=== PATIENT | female | born 1960 | race Caucasian/White ===

== ENCOUNTER 2016-10-23 08:15 | Inpatient (IN) | payer OTHER ==
[2016-10-23] VITALS (7 sets, daily range): BP systolic 131–168; BP diastolic 60–79; PULSE 79–92; RESP 18–22; TEMP 97.9–98.8; O2SAT 88–94
[~2016-10-23] VITALS: Ht 162.6 cm; Wt 89.0 kg
[2016-10-23] MEDS ORDERED: SODIUM CHLORIDE 0.9% FLUSH 10 ML FLUSH IVF PRN (08:30)
[2016-10-23] MEDS ORDERED: methylPREDNISolone SOD SUCC 125 MG/2 ML VIAL IVP ONE (08:30)
[2016-10-23] MEDS ORDERED: LISI10TA3 PO (08:31)
[2016-10-23] MEDS ORDERED: ASPI81CH CHEW (08:31)
--- NOTE | 2016-10-23 08:35 | PD ---
HPI Chief Complaint: Respiratory Distress Time Seen by Provider: 08:26 Travel History International Travel<30 days: No Contact w/Intl Traveler<30days: No Traveled to known affect area: No History of Present Illness HPI 56yo F with PMH of HTN and COPD presents to the ED with c/o sob since yesterday. Associated with midsternal chest tightness that is constant but waxes and wanes in intensity. Nonradiating. +Productive cough. Denies any fever, n/v, abdominal pain, focal weakness or numbness. Pt states she used her pumps but didnt help. PFSH Social History Tobacco Use: No Allergies-Medications (Allergen,Severity, Reaction): Coded Allergies: Morphine (Verified Allergy, Severe, 10/23/16) Reported Meds & Prescriptions Reported Meds & Active Scripts Active Reported Aspirin 81 Mg Chew 81 Mg CHEW DAILY Lisinopril 10 Mg Tab 10 Mg PO DAILY Review of Systems Except as stated in HPI: all other systems reviewed are Neg Physical Exam Narrative GENERAL: 56yo F in moderate distress. SKIN: Focused skin assessment warm/dry. HEAD: Atraumatic. Normocephalic. EYES: Pupils equal and round. No scleral icterus. No injection or drainage. ENT: No nasal bleeding or discharge. Mucous membranes pink and moist. NECK: Trachea midline. No JVD. CARDIOVASCULAR: Regular rate and rhythm. No murmur appreciated. RESPIRATORY: Expiratory wheezing bilaterally in upper and lower lungs. O2 sat 87% on RA. 95% on 2L NC. GASTROINTESTINAL: Abdomen soft, non-tender, nondistended. MUSCULOSKELETAL: No obvious deformities. No clubbing. No cyanosis. No edema. NEUROLOGICAL: Awake and alert. No obvious cranial nerve deficits. Motor grossly within normal limits. Normal speech. PSYCHIATRIC: Appropriate mood and affect; insight and judgment normal. Data Data Last Documented VS Vital Signs Date Time Temp Pulse Resp B/P Pulse Ox O2 Delivery O2 Flow Rate FiO2 10/23/16 08:36 94 Nasal Cannula 2 10/23/16 08:27 20 10/23/16 08:17 98.8 91 155/70 Orders Complete Blood Count With Diff (10/23/16 08:30) Basic Metabolic Panel (Bmp) (10/23/16 08:30) B-Type Natriuretic Peptide (10/23/16 08:30) Act Partial Throm Time (Ptt) (10/23/16 08:30) Prothrombin Time / Inr (Pt) (10/23/16 08:30) Ckmb (Isoenzyme) Profile (10/23/16 08:30) Troponin I (10/23/16 08:30) Arterial Blood Gas (Abg) (10/23/16 08:30) Influenzae A/B Antigen (10/23/16 08:30) Blood Culture (10/23/16 08:30) Iv Access Insert/Monitor (10/23/16 08:30) Electrocardiogram (10/23/16 08:30) Ecg Monitoring (10/23/16 08:30) Oximetry (10/23/16 08:30) Oxygen Administration (10/23/16 08:30) Chest, Single Ap (10/23/16 08:30) Sodium Chloride 0.9% Flush (Ns Flush) (10/23/16 08:30) Methylprednisolone So Succ Inj (Solumedr (10/23/16 08:30) Albuterol-Ipratropium Neb (Duoneb Neb) (10/23/16 08:30) Lactic Acid Sepsis Protocol (10/23/16 08:35) CKMB (10/23/16 08:35) CKMB% (10/23/16 08:35) Albuterol Neb (Albuterol Neb) (10/23/16 12:00) Admit Order (Ed Use Only) (10/23/16 11:07) Labs Laboratory Tests Test 10/23/16 10/23/16 10/23/16 08:35 08:40 08:48 White Blood Count 6.5 TH/MM3 Red Blood Count 5.43 MIL/MM3 Hemoglobin 17.1 GM/DL Hematocrit 49.4 % Mean Corpuscular Volume 91.0 FL Mean Corpuscular Hemoglobin 31.5 PG Mean Corpuscular Hemoglobin 34.6 % Concent Red Cell Distribution Width 14.1 % Platelet Count 205 TH/MM3 Mean Platelet Volume 9.8 FL Neutrophils (%) (Auto) 50.1 % Lymphocytes (%) (Auto) 30.3 % Monocytes (%) (Auto) 16.6 % Eosinophils (%) (Auto) 2.2 % Basophils (%) (Auto) 0.8 % Neutrophils # (Auto) 3.2 TH/MM3 Lymphocytes # (Auto) 2.0 TH/MM3 Monocytes # (Auto) 1.1 TH/MM3 Eosinophils # (Auto) 0.1 TH/MM3 Basophils # (Auto) 0.1 TH/MM3 CBC Comment DIFF FINAL Differential Comment Prothrombin Time 11.0 SEC Prothromb Time International 1.0 RATIO Ratio Activated Partial 29.4 SEC Thromboplast Time Sodium Level 139 MEQ/L Potassium Level 3.9 MEQ/L Chloride Level 104 MEQ/L Carbon Dioxide Level 26.5 MEQ/L Anion Gap 9 MEQ/L Blood Urea Nitrogen 16 MG/DL Creatinine 1.12 MG/DL Estimat Glomerular Filtration 50 ML/MIN Rate Random Glucose 101 MG/DL Calcium Level 8.9 MG/DL Total Creatine Kinase 197 U/L Creatine Kinase MB 1.2 NG/ML Creatine Kinase MB % 0.6 % Troponin I LESS THAN 0.02 NG/ML B-Type Natriuretic Peptide 38 PG/ML Lactic Acid Level 0.8 mmol/L Blood Gas Puncture Site RT RADIAL Blood Gas Patient Temperature 98.6 Blood Gas HCO3 24 mmol/L Blood Gas Base Excess 0.6 mmol/L Blood Gas Oxygen Saturation 86 % Arterial Blood pH 7.44 Arterial Blood Partial 36 mmHg Pressure CO2 Arterial Blood Partial 55 mmHG Pressure O2 Arterial Blood Oxygen Content 20.3 Vol % Arterial Blood 4.4 % Carboxyhemoglobin Arterial Blood Methemoglobin 0.6 % Blood Gas Hemoglobin 16.8 G/DL Oxygen Delivery Device ROOM AIR Blood Gas Inspired Oxygen 21 % [facility] Medical Decision Making Medical Screen Exam Complete: Yes Emergency Medical Condition: Yes Interpretation(s) EKG: NSR 84bpm. Normal axis. TWI aVL. No ST segment elevation or depression. Differential Diagnosis COPD exacerbation vs. Pneumonia vs. Bronchitis vs. ACS vs. CHF Narrative Course 56yo F with PMH of COPD presents to the ED with sob. Labs reviewed, no leukocytosis. H/H elevated. Troponin negative. BNP 38. Lactic acid 0.8. ABG showed O2 sat 86% on RA. CXR negative. Pt is wheezing bilaterally. Given methylprednisolone 125mg IV and duonebs x3 and feels a little better. Pt is still wheezing and saturating at 88% off oxygen. Pt does not have oxygen at home. Feel that pt will benefit from observation admission for COPD exacerbation. Diagnosis Primary Impression: COPD exacerbation Admitting Information Admitting Physician Requests: Observation Carole France DO Oct 23, 2016 08:34
[2016-10-23] MEDS: RESP: ALBUTEROL 2.5 MG/IPRATROPIUM 0.5 MG NEB (SCH) INH ×3 (08:41→08:45)
[2016-10-23 08:53] LABS: BLOOD GAS BASE EXCESS 0.6 mmol/L (-2-2); BLOOD GAS CARBOXYHEMOGLOBIN 4.4 % (0-4); BLOOD GAS HCO3 24 mmol/L (22-26); BLOOD GAS METHEMOGLOBIN 0.6 % (0-2); BLOOD GAS O2 HGB SATURATION 86 % (90-100); BLOOD GAS OXYGEN CONTENT 20.3 Vol % (12.0-20.0); BLOOD GAS PCO2 36 mmHg (38-42); BLOOD GAS PO2 55 mmHG (61-120); BLOOD GAS TOTAL HGB 16.8 G/DL (12.0-16.0); CRITICAL VALUE YES; FIO2 21 %; OXYGEN DEVICE ROOM AIR; TEMP CORR TO 98.6
[2016-10-23 08:54] LABS: DRAW SITE RT RADIAL; NUMBER OF ARTERIAL PUNCTURES 1; STAT YES; ULNAR PULSE Y
[2016-10-23 09:06] LABS: AUTOMATED NEUTROPHIL # 3.2 TH/MM3 (1.8-7.7); BASOPHIL # 0.1 TH/MM3 (0-0.2); BASOPHIL % 0.8 % (0.0-2.0); EOSINOPHIL # 0.1 TH/MM3 (0-0.4); EOSINOPHIL % 2.2 % (0.0-4.0); HEMATOCRIT 49.4 % (35.0-46.0); HEMO FLAGS DIFF FINAL; LYMPH % 30.3 % (9.0-44.0); MEAN CORPUSCULAR HEMOGLOBIN 31.5 PG (27.0-34.0); MEAN CORPUSCULAR HGB CONC 34.6 % (32.0-36.0); MONO % 16.6 % (0.0-8.0); NEUT % 50.1 % (16.0-70.0); PLATELET COUNT 205 TH/MM3 (150-450); RED BLOOD COUNT 5.43 MIL/MM3 (4.00-5.30); RED CELL DISTRIBUTION WIDTH 14.1 % (11.6-17.2); WHITE BLOOD COUNT 6.5 TH/MM3 (4.0-11.0)
[2016-10-23 09:12] LABS: APTT (PATIENT) 29.4 SEC (24.3-30.1)
[2016-10-23 09:16] LABS: ANION GAP 9 MEQ/L (5-15); BICARBONATE 26.5 MEQ/L (21.0-32.0); BLOOD UREA NITROGEN 16 MG/DL (7-18); CHLORIDE 104 MEQ/L (98-107); GLOMERULAR FILTRATION RATE 50 ML/MIN (>89); POTASSIUM 3.9 MEQ/L (3.5-5.1); SODIUM (NA) 139 MEQ/L (136-145)
[2016-10-23 09:20] LABS: CREATINE KINASE 197 U/L (26-192)
[2016-10-23 09:32] LABS: CKMB 1.2 NG/ML (0.5-3.6)
--- NOTE | 2016-10-23 10:27 | RADRPT ---
EXAM DATE/TIME: 10/23/2016 08:58 [place] COMPARISON: No previous studies available for comparison. INDICATIONS : Shortness of breath. MEDICAL HISTORY : Hypertension. Smoker. SURGICAL HISTORY : None. ENCOUNTER: Initial ACUITY: 2 days PAIN SCORE: 2/10 LOCATION: Bilateral chest FINDINGS: A single view of the chest demonstrates the lungs to be symmetrically aerated without evidence of mas s, infiltrate or effusion. The cardiomediastinal contours are unremarkable. Osseous structures are intact. CONCLUSION: 1. No acute cardiopulmonary findings. Nando Gustafson MD on October 23, 2016 at 10:25 Board Certified Radiologist. This report was verified electronically.
[2016-10-23] MEDS: RESP: ALBUTEROL 2.5 MG/IPRATROPIUM 0.5 MG NEB (SCH) NEB ×4 (11:53→22:20)
[2016-10-23] MEDS ORDERED: RESP: ALBUTEROL 2.5 MG/3 ML NEB (SCH) NEB (12:00)
--- NOTE | 2016-10-23 13:04 | HHI.HP ---
HPI Service CP Hospitalists Primary Care Physician No Primary Care Physician Admission Diagnosis COPD exacerbation Chief Complaint: SOB, cough Travel History International Travel<30 Days: No Contact w/Intl Traveler <30 Da: No Traveled to Known Affected Are: No History of Present Illness Mrs. Manzo is a 56 y/o female with COPD, HTN, and tobacco abuse. She presented to the ED at [facility] on 10/23/16 with complaints of SOB and was found to be hypoxic with O2 saturations of 88%on room air. Pt reported that in July 2016 and was seen at [facility] and she was diagnosed with bronchitis and was treated with Abx, cough medication, steroids and inhalers. She had been doing well up until 4 days ago when she began having scratchy throat and sneezing. She developed more chest tightness and feeling more SOB yesterday. She is now coughing up green phlegm over the last day or so, it had been clear initially. She denies any fevers or chills. Pt reports that she has been visiting her father in the hospital and also works at [employer]. She tried using her inhaler, cough drops, and took cough pills but did not have much relief. She states that she also used bleach in her bathroom 3 days ago but states that she does this every week without any issues previously. Review of Systems Constitutional: DENIES: Fever, Chills Eyes: DENIES: Vision loss Ears, nose, mouth, throat: COMPLAINS OF: Nasal discharge, Throat pain Respiratory: COMPLAINS OF: Cough, Wheezing, Shortness of breath Cardiovascular: DENIES: Chest pain, Palpitations Gastrointestinal: DENIES: Abdominal pain, Nausea, Vomiting Genitourinary: DENIES: Urinary frequency, Hematuria Musculoskeletal: DENIES: Joint pain, Back pain Integumentary: DENIES: Rash Hematologic/lymphatic: DENIES: Lymphadenopathy Neurologic: DENIES: Headache Psychiatric: DENIES: Confusion Past Family Social History Past Medical History HTN COPD, based on PFTs in 12/2015 Tobacco abuse 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, ?endocarditis which occurred after she had a cesarian section 21 years ago and developed a staph infection Past Surgical History Cesarian section x 3 Cholecystectomy Reported Medications Aspirin 81 Mg Chew 81 Mg CHEW DAILY Lisinopril 10 Mg Tab 10 Mg PO DAILY Allergies: Coded Allergies: Morphine (Verified Allergy, Severe, 10/23/16) Family History Mother with CAD Father alive and no specific medical problems Social History (+)Tobacco use, smoke 1/2 ppd for 43 years Denies any alcohol or illicit drug use Pt works at the [employer] Physical Exam Vital Signs Vital Signs Date Time Temp Pulse Resp B/P Pulse Ox O2 Delivery O2 Flow Rate FiO2 10/23/16 12:00 79 22 131/63 91 Nasal Cannula 2 10/23/16 08:36 94 Nasal Cannula 2 10/23/16 08:36 94 Nasal Cannula 2 10/23/16 08:27 20 94 Nasal Cannula 3 10/23/16 08:17 98.8 91 18 155/70 88 Physical Exam GENERAL: This is a well-nourished, well-developed patient, in no apparent distress. HEENT: Atraumatic. Normocephalic. No temporal or scalp tenderness. No scleral icterus. Airway patent. NECK: Trachea midline, supple, nontender. CARDIO: Regular RESP: Diffuse expiratory wheezes bilaterally. ABD: +BS, soft, non-tender, nondistended. EXT: Extremities without clubbing, cyanosis, or edema. NEURO: Awake and alert. Motor and sensory grossly within normal limits. Normal speech. Laboratory Laboratory Tests Test 10/23/16 10/23/16 10/23/16 08:35 08:40 08:48 White Blood Count 6.5 Red Blood Count 5.43 Hemoglobin 17.1 Hematocrit 49.4 Mean Corpuscular Volume 91.0 Mean Corpuscular Hemoglobin 31.5 Mean Corpuscular Hemoglobin 34.6 Concent Red Cell Distribution Width 14.1 Platelet Count 205 Mean Platelet Volume 9.8 Neutrophils (%) (Auto) 50.1 Lymphocytes (%) (Auto) 30.3 Monocytes (%) (Auto) 16.6 Eosinophils (%) (Auto) 2.2 Basophils (%) (Auto) 0.8 Neutrophils # (Auto) 3.2 Lymphocytes # (Auto) 2.0 Monocytes # (Auto) 1.1 Eosinophils # (Auto) 0.1 Basophils # (Auto) 0.1 CBC Comment DIFF FINAL Differential Comment Prothrombin Time 11.0 Prothromb Time International 1.0 Ratio Activated Partial 29.4 Thromboplast Time Sodium Level 139 Potassium Level 3.9 Chloride Level 104 Carbon Dioxide Level 26.5 Anion Gap 9 Blood Urea Nitrogen 16 Creatinine 1.12 Estimat Glomerular Filtration 50 Rate Random Glucose 101 Calcium Level 8.9 Total Creatine Kinase 197 Creatine Kinase MB 1.2 Creatine Kinase MB % 0.6 Troponin I LESS THAN 0.02 B-Type Natriuretic Peptide 38 Lactic Acid Level 0.8 Blood Gas Puncture Site RT RADIAL Blood Gas Patient Temperature 98.6 Blood Gas HCO3 24 Blood Gas Base Excess 0.6 Blood Gas Oxygen Saturation 86 Arterial Blood pH 7.44 Arterial Blood Partial 36 Pressure CO2 Arterial Blood Partial 55 Pressure O2 Arterial Blood Oxygen Content 20.3 Arterial Blood 4.4 Carboxyhemoglobin Arterial Blood Methemoglobin 0.6 Blood Gas Hemoglobin 16.8 Oxygen Delivery Device ROOM AIR Blood Gas Inspired Oxygen 21 Date/Time Procedure Status Source Growth 10/23/16 10:00 Influenza Types A,B Antigen (GIANCARLO) - Final Complete Nasal Aspirate NEGATIVE FOR FLU A AND B ANTIGEN.... 10/23/16 08:40 Aerobic Blood Culture Received Blood Peripheral Pending 10/23/16 08:40 Anaerobic Blood Culture Received Blood Peripheral Pending Result Diagram: 10/23/1635 10/23/1635 Imaging Last Impressions Chest X-Ray 10/23/16 0830 Signed Impressions: Service Date/Time: Sunday, October 23, 2016 08:58 - CONCLUSION: 1. No acute cardiopulmonary findings. Nando Gustafson MD Septic Shock Reassessment Heart: Regular rate and rhythm Lungs: Other Skin: Warm Assessment and Plan Problem List: (1) COPD exacerbation Status: Acute Plan: - Pt admitted with a COPD exacerbation which began 4 days ago - Pt was given Solemedrol 125mg x one dose in the ER - We will continued Solumedrol 60mg Q6H - Duonebs Q4H WA - Claritin - Mucinex - Blood cultures drawn in the ED - Pt tested negative for flu - Tobacco cessation - Pt will need to continue on Duonebs and Prednisone taper upon discharge and may need daily maintenance therapy for her COPD - DVT prophylaxis with SCDs (2) HTN (hypertension) Status: Chronic Plan: - Cont. home meds (3) Tobacco abuse Status: Chronic Plan: - Tobacco cessation - Pt states that she failed with Nicotine patches - Pt interested in Chantix. I will call [facility] to get pricing for her. Assessment and Plan Patient examined. Assessment and plan formulated with Anastasia Redd PA-C. I agree with the above. copd exacerbion solumedrol/nebs. o2. tob cessation. will call pharmacy in AM for outpt meds. Anastasia Redd Oct 23, 2016 13:04 Israel Henao MD Oct 24, 2016 00:29
[2016-10-23] MEDS ORDERED: LORATADINE 10 MG TAB PO ONE (14:30)
[2016-10-23] MEDS: methylPREDNISolone SOD SUCC 125 MG/2 ML VIAL IV PUSH SCH ×2 (14:42→19:44)
[2016-10-23] MEDS: guaiFENesin E.R. 600 MG TAB PO SCH ×2 (15:17→19:44)
--- NOTE | 2016-10-23 17:10 | EKG ---
Date Performed: 10/23/2016 Time Performed: 08:31:59 PTAGE: 56 years EKG: Sinus rhythm NORMAL ECG NO PREVIOUS TRACING DOCTOR: Radha Gonzalez Interpretating Date/Time 10/23/2016 17:08:54
[2016-10-24] VITALS (9 sets, daily range): BP systolic 126–154; BP diastolic 62–75; PULSE 72–93; RESP 18–20; TEMP 97.4–98.3; O2SAT 84–98
[2016-10-24] MEDS: methylPREDNISolone SOD SUCC 125 MG/2 ML VIAL IV PUSH SCH ×4 (01:26→20:59)
[2016-10-24 05:00] LABS: AUTOMATED NEUTROPHIL # 8.6 TH/MM3 (1.8-7.7); BASOPHIL % 0.2 % (0.0-2.0); HEMATOCRIT 48.6 % (35.0-46.0); HEMO FLAGS DIFF FINAL; LYMPH % 10.9 % (9.0-44.0); LYMPHOCYTE # 1.1 TH/MM3 (1.0-4.8); MEAN CELL VOLUME 91.3 FL (80.0-100.0); MEAN CORPUSCULAR HEMOGLOBIN 31.5 PG (27.0-34.0); MEAN CORPUSCULAR HGB CONC 34.5 % (32.0-36.0); NEUT % 82.9 % (16.0-70.0); PLATELET COUNT 209 TH/MM3 (150-450); RED BLOOD COUNT 5.32 MIL/MM3 (4.00-5.30); WHITE BLOOD COUNT 10.4 TH/MM3 (4.0-11.0)
[2016-10-24 05:28] LABS: BICARBONATE 22.7 MEQ/L (21.0-32.0); MAGNESIUM 2.2 MG/DL (1.5-2.5); POTASSIUM 4.1 MEQ/L (3.5-5.1)
[2016-10-24] MEDS: RESP: ALBUTEROL 2.5 MG/IPRATROPIUM 0.5 MG NEB (SCH) NEB ×4 (07:44→20:34)
--- NOTE | 2016-10-24 09:12 | HHI.PR ---
Subjective Remarks Pt overall is feeling better but still requiring supplemental O2 @ 2L Objective Vitals Vital Signs Date Time Temp Pulse Resp B/P Pulse Ox O2 Delivery O2 Flow Rate FiO2 10/24/16 07:59 97.4 81 20 126/65 93 10/24/16 07:45 Nasal Cannula 2.00 10/24/16 04:43 97.6 72 18 140/75 92 10/23/16 23:35 97.9 92 18 132/60 92 10/23/16 19:35 98.1 84 20 151/68 92 10/23/16 17:13 91 Nasal Cannula 2.00 10/23/16 15:06 97.9 79 20 168/79 91 10/23/16 12:00 79 22 131/63 91 Nasal Cannula 2 10/23/16 10/23/16 10/24/16 15:00 23:00 07:00 Intake Total 0 ml Balance 0 ml Intake IV Total 0 ml Result Diagram: 10/24/16 0435 10/24/16 0435 Other Results Laboratory Tests Test 10/23/16 10/23/16 10/23/16 10/24/16 08:35 08:40 08:48 04:35 White Blood Count 6.5 TH/MM3 10.4 TH/MM3 Red Blood Count 5.43 MIL/MM3 5.32 MIL/MM3 Hemoglobin 17.1 GM/DL 16.7 GM/DL Hematocrit 49.4 % 48.6 % Mean Corpuscular Volume 91.0 FL 91.3 FL Mean Corpuscular Hemoglobin 31.5 PG 31.5 PG Mean Corpuscular Hemoglobin 34.6 % 34.5 % Concent Red Cell Distribution Width 14.1 % 14.0 % Platelet Count 205 TH/MM3 209 TH/MM3 Mean Platelet Volume 9.8 FL 9.7 FL Neutrophils (%) (Auto) 50.1 % 82.9 % Lymphocytes (%) (Auto) 30.3 % 10.9 % Monocytes (%) (Auto) 16.6 % 6.0 % Eosinophils (%) (Auto) 2.2 % 0.0 % Basophils (%) (Auto) 0.8 % 0.2 % Neutrophils # (Auto) 3.2 TH/MM3 8.6 TH/MM3 Lymphocytes # (Auto) 2.0 TH/MM3 1.1 TH/MM3 Monocytes # (Auto) 1.1 TH/MM3 0.6 TH/MM3 Eosinophils # (Auto) 0.1 TH/MM3 0.0 TH/MM3 Basophils # (Auto) 0.1 TH/MM3 0.0 TH/MM3 CBC Comment DIFF FINAL DIFF FINAL Differential Comment Prothrombin Time 11.0 SEC Prothromb Time International 1.0 RATIO Ratio Activated Partial 29.4 SEC Thromboplast Time Sodium Level 139 MEQ/L 139 MEQ/L Potassium Level 3.9 MEQ/L 4.1 MEQ/L Chloride Level 104 MEQ/L 106 MEQ/L Carbon Dioxide Level 26.5 MEQ/L 22.7 MEQ/L Anion Gap 9 MEQ/L 10 MEQ/L Blood Urea Nitrogen 16 MG/DL 19 MG/DL Creatinine 1.12 MG/DL 0.97 MG/DL Estimat Glomerular Filtration 50 ML/MIN 59 ML/MIN Rate Random Glucose 101 MG/DL 160 MG/DL Calcium Level 8.9 MG/DL 9.3 MG/DL Total Creatine Kinase 197 U/L Creatine Kinase MB 1.2 NG/ML Creatine Kinase MB % 0.6 % Troponin I LESS THAN 0.02 NG/ML B-Type Natriuretic Peptide 38 PG/ML Lactic Acid Level 0.8 mmol/L Blood Gas Puncture Site RT RADIAL Blood Gas Patient Temperature 98.6 Blood Gas HCO3 24 mmol/L Blood Gas Base Excess 0.6 mmol/L Blood Gas Oxygen Saturation 86 % Arterial Blood pH 7.44 Arterial Blood Partial 36 mmHg Pressure CO2 Arterial Blood Partial 55 mmHG Pressure O2 Arterial Blood Oxygen Content 20.3 Vol % Arterial Blood 4.4 % Carboxyhemoglobin Arterial Blood Methemoglobin 0.6 % Blood Gas Hemoglobin 16.8 G/DL Oxygen Delivery Device ROOM AIR Blood Gas Inspired Oxygen 21 % Magnesium Level 2.2 MG/DL Imaging Last Impressions Chest X-Ray 10/23/16 0830 Signed Impressions: Service Date/Time: Sunday, October 23, 2016 08:58 - CONCLUSION: 1. No acute cardiopulmonary findings. Nando Gustafson MD Objective Remarks General: NAD, AAOx3 Chest: Bilateral expiratory wheeze Cardiac: Regular Abd: +BS, soft ND/NT Ext: No edema A/P Problem List: (1) COPD exacerbation Status: Acute Plan: - Pt admitted with a COPD exacerbation which began 4 days ago - Pt was given Solu-Medrol 125mg x one dose in the ER - Continued Solu-Medrol 60mg Q6H - Duonebs Q4H WA - Claritin - Mucinex - Blood cultures are pending - Sputum culture is pending. - Pt tested negative for flu - Tobacco cessation - Pt will need to continue on Duonebs and Prednisone taper upon discharge and may need daily maintenance therapy for her COPD - DVT prophylaxis with SCDs (2) HTN (hypertension) Status: Chronic Plan: - Cont. home meds (3) Tobacco abuse Status: Chronic Plan: - Tobacco cessation - Pt states that she failed with Nicotine patches - Pt interested in Chantix. I will call [facility] to get pricing for her. Assessment and Plan Patient examined. Assessment and plan formulated with Anastasia Redd PA-C. I agree with the above. copd exacerbation persistent hypoxia. discussed smoking cessation. solumedrol/nebs. might still need home o2. Anastasia Redd Oct 24, 2016 09:12 Israel Henao MD Oct 24, 2016 12:42
[2016-10-24] MEDS: ASPIRIN 81 MG CHEW TAB CHEW SCH (09:23)
[2016-10-24] MEDS: LISINOPRIL 10 MG TAB PO SCH (09:23)
[2016-10-24] MEDS: guaiFENesin E.R. 600 MG TAB PO SCH ×2 (09:23→20:59)
[2016-10-24] MEDS: LORATADINE 10 MG TAB PO SCH (09:23)
[2016-10-24] MEDS: BUDESONIDE-FORMOTEROL 160/4.5 MCG INHALER INH SCH ×2 (12:10→20:59)
[2016-10-24] MEDS ORDERED: CALCIUM CARBONATE 500 MG CHEWABLE TAB CHEW PRN (12:30)
[2016-10-24] MEDS: PANTOPRAZOLE SOD 40 MG DELAYED RELEASE TAB PO SCH (13:22)
[2016-10-24] MEDS ORDERED: ALUMINUM/MAGNESIUM/SIMETH 30 ML CUP PO PRN (15:30)
[2016-10-25] VITALS (11 sets, daily range): BP systolic 122–188; BP diastolic 65–82; PULSE 70–91; RESP 18–20; TEMP 97.5–98.4; O2SAT 91–98
[2016-10-25] MEDS: methylPREDNISolone SOD SUCC 125 MG/2 ML VIAL IV PUSH SCH ×4 (03:28→21:32)
--- NOTE | 2016-10-25 08:23 | HHI.PR ---
Subjective Remarks Pt overall feeling better today She was having some indigestion yesterday which has improved with Maalox Objective Vitals Vital Signs Date Time Temp Pulse Resp B/P Pulse Ox O2 Delivery O2 Flow Rate FiO2 10/25/16 08:07 98.4 71 18 130/65 94 10/25/16 05:25 93 Nasal Cannula 2.00 10/25/16 04:40 87 10/25/16 04:13 97.5 79 20 122/66 95 10/24/16 23:42 98.0 76 19 147/68 95 10/24/16 20:34 98 Nasal Cannula 2.00 10/24/16 20:00 Nasal Cannula 2.00 10/24/16 19:53 98.3 90 20 134/62 95 10/24/16 18:39 93 10/24/16 15:50 97.8 79 20 154/67 96 10/24/16 12:15 97.5 82 20 136/70 94 10/24/16 11:09 84 21 10/24/16 11:00 Nasal Cannula 2.00 Result Diagram: 10/24/16 0435 10/24/16 0435 Other Results Laboratory Tests Test 10/23/16 10/23/16 10/23/16 10/24/16 08:35 08:40 08:48 04:35 White Blood Count 6.5 TH/MM3 10.4 TH/MM3 Red Blood Count 5.43 MIL/MM3 5.32 MIL/MM3 Hemoglobin 17.1 GM/DL 16.7 GM/DL Hematocrit 49.4 % 48.6 % Mean Corpuscular Volume 91.0 FL 91.3 FL Mean Corpuscular Hemoglobin 31.5 PG 31.5 PG Mean Corpuscular Hemoglobin 34.6 % 34.5 % Concent Red Cell Distribution Width 14.1 % 14.0 % Platelet Count 205 TH/MM3 209 TH/MM3 Mean Platelet Volume 9.8 FL 9.7 FL Neutrophils (%) (Auto) 50.1 % 82.9 % Lymphocytes (%) (Auto) 30.3 % 10.9 % Monocytes (%) (Auto) 16.6 % 6.0 % Eosinophils (%) (Auto) 2.2 % 0.0 % Basophils (%) (Auto) 0.8 % 0.2 % Neutrophils # (Auto) 3.2 TH/MM3 8.6 TH/MM3 Lymphocytes # (Auto) 2.0 TH/MM3 1.1 TH/MM3 Monocytes # (Auto) 1.1 TH/MM3 0.6 TH/MM3 Eosinophils # (Auto) 0.1 TH/MM3 0.0 TH/MM3 Basophils # (Auto) 0.1 TH/MM3 0.0 TH/MM3 CBC Comment DIFF FINAL DIFF FINAL Differential Comment Prothrombin Time 11.0 SEC Prothromb Time International 1.0 RATIO Ratio Activated Partial 29.4 SEC Thromboplast Time Sodium Level 139 MEQ/L 139 MEQ/L Potassium Level 3.9 MEQ/L 4.1 MEQ/L Chloride Level 104 MEQ/L 106 MEQ/L Carbon Dioxide Level 26.5 MEQ/L 22.7 MEQ/L Anion Gap 9 MEQ/L 10 MEQ/L Blood Urea Nitrogen 16 MG/DL 19 MG/DL Creatinine 1.12 MG/DL 0.97 MG/DL Estimat Glomerular Filtration 50 ML/MIN 59 ML/MIN Rate Random Glucose 101 MG/DL 160 MG/DL Calcium Level 8.9 MG/DL 9.3 MG/DL Total Creatine Kinase 197 U/L Creatine Kinase MB 1.2 NG/ML Creatine Kinase MB % 0.6 % Troponin I LESS THAN 0.02 NG/ML B-Type Natriuretic Peptide 38 PG/ML Lactic Acid Level 0.8 mmol/L Blood Gas Puncture Site RT RADIAL Blood Gas Patient Temperature 98.6 Blood Gas HCO3 24 mmol/L Blood Gas Base Excess 0.6 mmol/L Blood Gas Oxygen Saturation 86 % Arterial Blood pH 7.44 Arterial Blood Partial 36 mmHg Pressure CO2 Arterial Blood Partial 55 mmHG Pressure O2 Arterial Blood Oxygen Content 20.3 Vol % Arterial Blood 4.4 % Carboxyhemoglobin Arterial Blood Methemoglobin 0.6 % Blood Gas Hemoglobin 16.8 G/DL Oxygen Delivery Device ROOM AIR Blood Gas Inspired Oxygen 21 % Magnesium Level 2.2 MG/DL Imaging Last Impressions Chest X-Ray 10/23/16 0830 Signed Impressions: Service Date/Time: Sunday, October 23, 2016 08:58 - CONCLUSION: 1. No acute cardiopulmonary findings. Nando Gustafson MD Objective Remarks General: NAD, AAOx3 ENT: White patches in the back of the mouth Chest: CTA, diminished breath sounds Cardiac: Regular Abd: +BS, soft ND/NT Ext: No edema A/P Problem List: (1) COPD exacerbation Status: Acute Plan: - Pt admitted with a COPD exacerbation which began 4 days ago - Pt was given Solu-Medrol 125mg x one dose in the ER - Continued Solu-Medrol 60mg Q6H - Duonebs Q4H WA - Claritin - Mucinex - Symbicort added on 10/24/16 - Blood cultures are pending - Sputum culture is pending. - Try to wean off supplemental O2 today - Pt tested negative for flu - Tobacco cessation - Pt with some noted thrush on examination. Give Nystatin S/S - Anticipate discharge in the next 1-2 days - Pt will need to continue on Duonebs and Prednisone taper upon discharge and may need daily maintenance therapy for her COPD - DVT prophylaxis with SCDs (2) HTN (hypertension) Status: Chronic Plan: - Cont. home meds (3) Tobacco abuse Status: Chronic Plan: - Tobacco cessation - Pt states that she failed with Nicotine patches - Pt will be prescribed Chantix at discharge Assessment and Plan Patient examined. Assessment and plan formulated with Anastasia Redd PA-C. I agree with the above. copd exacerbation. persistent hypoxia. hoarse with thrush noted. nystatin ordered. pt really trying to avoid home oxygen..but at present still requiring it. Anastasia Redd Oct 25, 2016 08:23 Israel Henao MD Oct 25, 2016 18:12
[2016-10-25] MEDS: RESP: ALBUTEROL 2.5 MG/IPRATROPIUM 0.5 MG NEB (SCH) NEB ×4 (09:00→20:01)
[2016-10-25] MEDS: LISINOPRIL 10 MG TAB PO SCH (09:21)
[2016-10-25] MEDS: PANTOPRAZOLE SOD 40 MG DELAYED RELEASE TAB PO SCH (09:21)
[2016-10-25] MEDS: guaiFENesin E.R. 600 MG TAB PO SCH ×2 (09:21→21:33)
[2016-10-25] MEDS: BUDESONIDE-FORMOTEROL 160/4.5 MCG INHALER INH SCH ×2 (09:21→21:32)
[2016-10-25] MEDS: LORATADINE 10 MG TAB PO SCH (09:21)
[2016-10-25] MEDS: ASPIRIN 81 MG CHEW TAB CHEW SCH (09:21)
[2016-10-25] MEDS: NYSTATIN SUSP 500,000 U/5 ML CUP SWISH-SWAL SCH ×3 (13:54→21:33)
[2016-10-25] MEDS ORDERED: cloNIDine HCL 0.1 MG TAB PO PRN (21:00)
[2016-10-26 00:25] VITALS: BP 176/78; PULSE 77; RESP 19; TEMP 98; O2SAT 93
[2016-10-26 03:33] VITALS: BP 179/82; PULSE 69; RESP 18; TEMP 98; O2SAT 92
[2016-10-26] MEDS: methylPREDNISolone SOD SUCC 125 MG/2 ML VIAL IV PUSH SCH ×2 (06:40→09:15)
[2016-10-26 08:00] VITALS: BP 184/91; PULSE 65; RESP 22; TEMP 97.9; O2SAT 92
[2016-10-26] MEDS: RESP: ALBUTEROL 2.5 MG/IPRATROPIUM 0.5 MG NEB (SCH) NEB (08:34)
[2016-10-26] MEDS ORDERED: PRED10 PO (08:35)
[2016-10-26] MEDS ORDERED: ALBU0.08 NEB (08:35)
[2016-10-26] MEDS ORDERED: NYST1000 SWISH-SWAL (08:35)
[2016-10-26] MEDS ORDERED: IPRA0.02 NEB (08:35)
[2016-10-26] MEDS ORDERED: NEBULIZER/ADULT1 KIT (08:36)
[2016-10-26 08:37] VITALS: O2SAT 92
--- NOTE | 2016-10-26 08:40 | HHI.DCPOC ---
Discharge Care Plan Diagnosis: (1) Tobacco abuse (2) HTN (hypertension) (3) COPD exacerbation Goals to Promote Your Health - Patient is to continue a Prednisone taper: - 30mg twice daily x 3 days, then decrease to 20mg twice daily x 3 days, then decrease to 10mg twice daily x 3 days, then decrease to 10mg once daily x 3 days, then stop - Patient is to continue on breathing treatments with Albuterol/Ipratropium every 4 hours while awake for the next 4 days, then can continue as needed for SOB or wheezing. - Patient is to followup with her assigned [facility] PCP, Dr. Kym Mast in 1 week, call for an appt. Directions to Meet Your Goals Take your medications as prescribed Follow your dietary instruction Follow activity as directed Keep your appointments as scheduled Take your immunizations and boosters as scheduled If your symptoms worsen call your PCP, if no PCP go to Urgent Care Center or Emergency Room Smoking is Dangerous to Your Health. Avoid second hand smoke Call the 24-hour hour crisis hotline for domestic abuse at Anastasia Redd Oct 26, 2016 08:40
[2016-10-26] MEDS ORDERED: VARE1PAK3 PO (08:42)
[2016-10-26] MEDS ORDERED: NICOTINE 14 MG/24 HR PATCH T-DERMAL ONE (08:45)
--- NOTE | 2016-10-26 08:49 | HHI.DS ---
Discharge Summary Admission Date Oct 24, 2016 at 12:03 Discharge Date: Oct 26, 2016 Admitting Diagnosis COPD exacerbation (1) COPD exacerbation Diagnosis: Principal (2) HTN (hypertension) Diagnosis: Secondary (3) Tobacco abuse Diagnosis: Secondary Brief History Mrs. Manzo is a 56 y/o female with COPD, HTN, and tobacco abuse. She presented to the ED at [facility] on 10/23/16 with complaints of SOB and was found to be hypoxic with O2 saturations of 88%on room air. Pt reported that in July 2016 and was seen at [facility] and she was diagnosed with bronchitis and was treated with Abx, cough medication, steroids and inhalers. She had been doing well up until 4 days ago when she began having scratchy throat and sneezing. She developed more chest tightness and feeling more SOB yesterday. She is now coughing up green phlegm over the last day or so, it had been clear initially. She denies any fevers or chills. Pt reports that she has been visiting her father in the hospital and also works at [employer]. She tried using her inhaler, cough drops, and took cough pills but did not have much relief. She states that she also used bleach in her bathroom 3 days ago but states that she does this every week without any issues previously. CBC/BMP: 10/24/16 0435 10/24/16 0435 Significant Findings Laboratory Tests Test 10/23/16 10/24/16 08:48 04:35 Blood Gas Oxygen Saturation 86 % (90-100) Arterial Blood pH 7.44 (7.380-7.420) Arterial Blood Partial 36 mmHg (38-42) Pressure CO2 Arterial Blood Partial 55 mmHG Pressure O2 (61-120) Arterial Blood Oxygen Content 20.3 Vol % (12.0-20.0) Arterial Blood 4.4 % (0-4) Carboxyhemoglobin Blood Gas Hemoglobin 16.8 G/DL (12.0-16.0) Red Blood Count 5.32 MIL/MM3 (4.00-5.30) Hemoglobin 16.7 GM/DL (11.6-15.3) Hematocrit 48.6 % (35.0-46.0) Neutrophils (%) (Auto) 82.9 % (16.0-70.0) Neutrophils # (Auto) 8.6 TH/MM3 (1.8-7.7) Blood Urea Nitrogen 19 MG/DL (7-18) Estimat Glomerular Filtration 59 ML/MIN (>89) Rate Random Glucose 160 MG/DL (74-106) Imaging Last Impressions Chest X-Ray 10/23/16 0830 Signed Impressions: Service Date/Time: Sunday, October 23, 2016 08:58 - CONCLUSION: 1. No acute cardiopulmonary findings. Nando Gustafson MD PE at Discharge General: NAD, AAOx3 ENT: White patches in the back of the mouth Chest: CTA, diminished breath sounds Cardiac: Regular Abd: +BS, soft ND/NT Ext: No edema Hospital Course Pt admitted with a COPD exacerbation which began 4 days prior to admission. Pt was given Solu-Medrol 125mg x one dose in the ER. She was continued on Solu- Medrol 60mg Q6H, Duonebs Q4H WA, Claritin, Mucinex. Symbicort was added on . Blood cultures were drawn in the ED and have had no growth to date. Sputum culture with heavy growth of normal respiratory tessie. Pt tested negative for flu. Pt was able to be weaned off supplemental O2 prior to discharge. Discussed the importance of tobacco cessation. Pt has requested a prescription for Chantix at discharge and this was provided with instructions for followup with her PCP. Pt with some noted thrush on examination on 10/25 and was started on Nystatin S/S and this will be continued x 5 days at discharge. Patient will continue a Prednisone taper: 30mg twice daily x 3 days, then decrease to 20mg twice daily x 3 days, then decrease to 10mg twice daily x 3 days, then decrease to 10mg once daily x 3 days, then stop. Patient will continue on breathing treatments with Albuterol/Ipratropium every 4 hours while awake for the next 4 days, then can continue as needed for SOB or wheezing. Patient is to followup with her assigned [facility] PCP, Dr. Kym Mast in 1 week. Pt Condition on Discharge: Stable Discharge Disposition: Discharge Home Discharge Instructions DIET: Follow Instructions for: Heart Healthy Diet Activities you can perform: Regular-No Restrictions Follow up Referrals: PCP Follow-up - [address] Kym Mast New Medications: Albuterol Neb (Albuterol Neb) 2.5 Mg/3 Ml Neb 2.5 MG NEB Q4HR NEB PRN SHORTNESS OF BREATH #60 Ref 0 NEBULE Ipratropium Neb (Ipratropium Neb) 0.5 Mg/2.5 Ml Amp 0.5 MG NEB Q4HR NEB Breathing Treatment #1 Ref 0 BOX Nebulizer/Adult Mask (Nebulizer/Adult Mask) 1 Kit Kit 1 KIT .ROUTE DIRECTED Breathing Treatment #1 Ref 0 KIT Prednisone (Prednisone) 10 Mg Tab 10 MG PO DIRECTED 30mg twice daily x 3 days, then decrease to 20mg twice daily x 3 days, then decrease to 10mg twice daily x 3 days, then decrease to 10mg once daily x 3 days, then stop. COPD exacerbation Days 12 Ref 0 TAB Varenicline (Chantix Starting Month ) 0.5 mg X 11 & 1 mg X 42 Pack 1 TAB PO DIRECTED Smoking cessation #1 Ref 0 PKT Nystatin Liq (Nystatin Liq) 100,000 unit/ml Susp 5 ML SWISH-SWAL QID thrush Days 5 BOTTLE Continued Medications: Aspirin (Aspirin) 81 Mg Chew 81 MG CHEW DAILY Ref 0 TAB Lisinopril (Lisinopril) 10 Mg Tab 10 MG PO DAILY #30 Ref 0 TAB Anastasia Redd Oct 26, 2016 08:49 Israel Henao MD Oct 26, 2016 14:02
[2016-10-26] MEDS: NYSTATIN SUSP 500,000 U/5 ML CUP SWISH-SWAL SCH (09:15)
[2016-10-26] MEDS: guaiFENesin E.R. 600 MG TAB PO SCH (09:16)
[2016-10-26] MEDS: LISINOPRIL 10 MG TAB PO SCH (09:16)
[2016-10-26] MEDS: BUDESONIDE-FORMOTEROL 160/4.5 MCG INHALER INH SCH (09:16)
[2016-10-26] MEDS: LORATADINE 10 MG TAB PO SCH (09:16)
[2016-10-26] MEDS: PANTOPRAZOLE SOD 40 MG DELAYED RELEASE TAB PO SCH (09:16)
[2016-10-26] MEDS: ASPIRIN 81 MG CHEW TAB CHEW SCH (09:16)
[2016-10-26] MEDS ORDERED: VENTAER INH (11:55)
[2016-10-26 12:00] VITALS: BP 148/20; PULSE 74; RESP 20; TEMP 98; O2SAT 91
[2016-10-26 12:03] VITALS: PULSE 60
[2016-10-27] MEDS ORDERED: ROBA750T PO ×2 (19:58→21:35)
== END 2016-10-26 12:57 | disposition home or self-care (01) | DRG 192 ==
LOC: NEPC 08:15 → NEDA 11:08 → NEPHCDU 15:01 → OBSVTOIN 10-24 12:03
PROVIDERS: ADMIT Hospitalist; ATTEND Hospitalist
DX: J44.1 Chronic obstructive pulmonary disease with (acute) exacerbation (principal); I10 Essential (primary) hypertension; R09.02 Hypoxemia; B37.9 Candidiasis, unspecified; F17.200 Nicotine dependence, unspecified, uncomplicated
CPT/HCPCS: 36600; 71010; 80048; 82550; 82552; 82805; 83605; 83735; 83880; 84484; 85025; 85610; 85730; 87040; 87070; 87205; 87804; 93005; 94620; 94640; 94664; 96374; G0378; J2930

== ENCOUNTER 2016-10-27 18:13 | Emergency (ER) | payer OTHER ==
[~2016-10-27] VITALS: Ht 162.6 cm; Wt 88.0 kg
[~2016-10-27 18:13] MED LIST: ALBU0.08 NEB; ASPI81CH CHEW; IPRA0.02 NEB; LISI10TA3 PO; NEBULIZER/ADULT1 KIT; NYST1000 SWISH-SWAL; PRED10 PO; VARE1PAK3 PO; VENTAER INH
[2016-10-27 18:15] VITALS: PULSE 72; RESP 24; TEMP 98; O2SAT 92
--- NOTE | 2016-10-27 18:49 | PD ---
HPI Chief Complaint: Musculoskeletal Complaint Time Seen by Provider: 18:24 Travel History International Travel<30 days: No Contact w/Intl Traveler<30days: No Traveled to known affect area: No History of Present Illness HPI The patient was seen and examined in the presence of the nurse. This patient complains of burning pain in both of her thighs. Patient was discharged yesterday from the hospital for COPD exacerbation and she says upon leaving the hospital she developed this thigh pain. It has not improved. There was no injury. She is not having discomfort in other muscle groups. She feels like it 's in her quadricep muscles. Certainly leg movements make it worse. No fever. Symptoms severity is moderate. No alleviating factors. Duration is about 30 hours PFSH Past Medical History Asthma: No Blood Disorders: No Cancer: No Cardiovascular Problems: No Congestive Heart Failure: No COPD: Yes Coronary Artery Disease: Yes Diabetes: No Endocrine: No Hypertension: Yes Immune Disorder: No Musculoskeletal: Yes (Knee SX for removal of bone fracture pieces. ) Neurologic: No ("Mom had a stroke in each part ofher brain") Psychiatric: No Reproductive: Yes Respiratory: Yes Sleep Apnea: Yes : 5 Para: 3 : 2 Tubal Ligation: Yes Past Surgical History Abdominal Surgery: Yes ([facility]) Cholecystectomy: Yes Hysterectomy: Yes Social History Alcohol Use: No Tobacco Use: No Substance Use: No Allergies-Medications (Allergen,Severity, Reaction): Coded Allergies: Morphine (Verified Allergy, Severe, 10/27/16) Reported Meds & Prescriptions Reported Meds & Active Scripts Active Ventolin Hfa 18 GM Inh (Albuterol Sulfate) 90 Mcg/Act Aer 1 Puff INH Q4H PRN Chantix Starting Month Jose Luis (Varenicline) 0.5 mg X 11 & 1 mg X 42 Pack 1 Tab PO DIRECTED Nebulizer/Adult Mask (N/A) 1 Kit Kit 1 Kit .ROUTE DIRECTED Prednisone 10 Mg Tab 10 Mg PO DIRECTED 12 Days 30mg twice daily x 3 days, then decrease to 20mg twice daily x 3 days, then decrease to 10mg twice daily x 3 days, then decrease to 10mg once daily x 3 days, then stop. Albuterol Neb (Albuterol Sulfate) 2.5 Mg/3 Ml Neb 2.5 Mg NEB Q4HR NEB PRN Ipratropium Neb (Ipratropium Victoria) 0.5 Mg/2.5 Ml Amp 0.5 Mg NEB Q4HR NEB Nystatin Liq 100,000 unit/ml Susp 5 Ml SWISH-SWAL QID 5 Days Reported Aspirin 81 Mg Chew 81 Mg CHEW DAILY Lisinopril 10 Mg Tab 10 Mg PO DAILY Review of Systems General / Constitutional: No: Fever Eyes: No: Visual changes HENT: Positive: Congestion, No: Headaches Cardiovascular: No: Chest Pain or Discomfort Respiratory: Positive: Cough, Shortness of Breath Gastrointestinal: No: Abdominal Pain Genitourinary: No: Dysuria Musculoskeletal: Positive: Myalgias, Pain Skin: No Rash Neurologic: No: Weakness Psychiatric: No: Depression Endocrine: No: Polydipsia Hematologic/Lymphatic: No: Easy Bruising Physical Exam Narrative GENERAL: Well-nourished, well-developed patient with myalgias in both legs. SKIN: Focused skin assessment reveals no rash and nodules. Skin is Warm and dry. HEAD: Atraumatic. Normocephalic. EYES: Pupils equal and round. No scleral icterus. No injection or drainage. ENT: No nasal bleeding or discharge. Mucous membranes pink and moist. NECK: Trachea midline. No JVD. CARDIOVASCULAR: Regular rate and rhythm. No murmur appreciated. RESPIRATORY: No accessory muscle use. Clear to auscultation. Breath sounds equal bilaterally. GASTROINTESTINAL: Abdomen soft, non-tender, nondistended. Hepatic and splenic margins not palpable. MUSCULOSKELETAL: No obvious deformities. No clubbing. No cyanosis. No edema. No objective physical examination abnormality of the thigh areas. NEUROLOGICAL: Awake and alert. No obvious cranial nerve deficits. Motor grossly within normal limits. Normal speech. PSYCHIATRIC: Appropriate mood and affect; insight and judgment normal. Data Data Last Documented VS Vital Signs Date Time Temp Pulse Resp B/P Pulse Ox O2 Delivery O2 Flow Rate FiO2 10/27/16 18:15 98.0 72 24 92 MDM Medical Decision Making Medical Screen Exam Complete: Yes Emergency Medical Condition: Yes Medical Record Reviewed: Yes Differential Diagnosis Myalgias, hypokalemia, connective tissue disease Narrative Course I have reviewed the patient's electronic medical record. Reviewed her discharge summary from yesterday. There is no mention of myalgias Etiology of her presentation is unclear. She is very vocal and dramatic and moaning. No objective findings here. All I can think of is possibly all the albuterol she's been getting over the last few days is made her hypokalemic and she is having cramps from that. IV placed Sending a metabolic profile Giving her injection of Norflex and Toradol Case will be checked out to Dr. Saucedo at 7 PM to assist with disposition seeing her at approximately 15 minutes prior to shift end Ellis Milian MD Oct 27, 2016 18:49
[2016-10-27] MEDS ORDERED: KETOROLAC TROMETHAMINE 60 MG/2 ML (IM) VIAL IM ONE (19:00)
[2016-10-27] MEDS ORDERED: ORPHENADRINE INJ 60 MG/2 ML AMP IM ONE (19:00)
--- NOTE | 2016-10-27 19:13 | PD ---
Physical Exam Date Seen by Provider: Oct 27, 2016 Time Seen by Provider: 19:10 Narrative Accepted in transfer of care from Dr. Milian GENERAL: Well-developed female crying and complaining about her thigh pain; no respiratory distress SKIN: Warm and dry. HEAD: Normocephalic. EYES: No scleral icterus. No injection or drainage. NECK: Supple, trachea midline. No JVD or lymphadenopathy. CARDIOVASCULAR: Regular rate and rhythm without murmurs, gallops, or rubs. RESPIRATORY: Breath sounds equal bilaterally. No accessory muscle use. GASTROINTESTINAL: Abdomen soft, non-tender, nondistended. MUSCULOSKELETAL: No cyanosis, or edema. Bilateral radial and dorsalis pedis pulses 2+ to palpation. Bilateral thighs are tender to palpation no redness no induration no increased warmth distally there is no pallor or coolness of the limb capillary refill is brisk and less than 2 seconds. Patient is able to demonstrate intact flexion extension and internal/external rotation and abduction and adduction. BACK: Nontender without obvious deformity. No CVA tenderness. Data Data Last Documented VS Vital Signs Date Time Temp Pulse Resp B/P Pulse Ox O2 Delivery O2 Flow Rate FiO2 10/27/16 21:25 59 16 160/90 93 10/27/16 21:00 Room Air 10/27/16 18:15 98.0 Orders Ketorolac Inj (Toradol Inj) (10/27/16 19:00) Orphenadrine Inj (Norflex Inj) (10/27/16 19:00) Iv Access Insert/Monitor (10/27/16 18:49) Basic Metabolic Panel (Bmp) (10/27/16 18:49) Creatine Kinase (Cpk) (10/27/16 18:49) Calcium Carbonate Chew (Tums Chew) (10/27/16 20:00) Clonidine (Catapres) (10/27/16 20:00) Oxycodone-Acetamin 5-325 Mg (Percocet (10/27/16 20:00) Labs Laboratory Tests Test 10/27/16 18:50 Sodium Level 140 MEQ/L Potassium Level 4.0 MEQ/L Chloride Level 104 MEQ/L Carbon Dioxide Level 27.3 MEQ/L Anion Gap 9 MEQ/L Blood Urea Nitrogen 24 MG/DL Creatinine 0.98 MG/DL Estimat Glomerular Filtration 58 ML/MIN Rate Random Glucose 176 MG/DL Calcium Level 8.1 MG/DL Total Creatine Kinase 102 U/L [facility] Medical Record Reviewed: Yes Supervised Visit with HUNTER: No Interpretation(s) CBC & BMP Diagram 10/27/16 18:50 Vital Signs Date Time Temp Pulse Resp B/P Pulse Ox O2 Delivery O2 Flow Rate FiO2 10/27/16 19:18 62 18 193/99 96 Room Air 10/27/16 18:15 98.0 72 24 92 Calcium: 8.1 CK: 102 Differential Diagnosis Accepted in transfer of care from Dr. Milian, please refer to his dictation Narrative Course Accepted in transfer of care from Dr. Milian, for follow-up of pending labs and patient disposition At 7:50 PM patient is noted to remain hypertensive reports she has not taken her evening dose of lisinopril 10 mg that she typically takes at 5 PM her discomfort has improved some but is still present and reports that she has taken Percocet in the past for pain but really takes pain medication and also identifies that in the hospital for elevated blood pressure they did give her clonidine as well as was placed on Tums for calcium replacement. Patient is identified to have some mildly depressed calcium she has administered oral Tums and oral dose of clonidine 0.1 mg and for persistent discomfort although it has improved somewhat with muscle relaxant Percocet 5/325 times one dose. Patient otherwise appears stable for outpatient management and follow-up with her primary care physician. Patient encouraged to increase fluid hydration is appears mildly dehydrated based on elevation of BUN: 24. At 9 PM patient is clinically improved and stable for outpatient management Diagnosis Primary Impression: Muscle spasm of both lower legs Additional Impression: Hypocalcemia Referrals: Primary Care Physician 2 days Patient Instructions: General Instructions, Narcotic given in the ED Additional Instruction: Increase fluid hydration Follow-up with primary care provider Add calcium containing foods and beverages to dietary intake along with Tums supplement Return to the emergency department for any concerns or change in condition May use muscle relaxant as prescribed as needed Med/Other Pt SpecificInfo: Prescription(s) given Scripts Methocarbamol (Robaxin)750 Mg [id number] Mg PO Q6HR #12 TAB Ref 0 Prov:Antonia Saucedo MD 10/27/16 Disposition: 01 DISCHARGE HOME Condition: Stable Antonia Saucedo MD Oct 27, 2016 19:13
[2016-10-27 19:16] LABS: BICARBONATE 27.3 MEQ/L (21.0-32.0)
[2016-10-27 19:18] VITALS: BP 193/99; PULSE 62; RESP 18; O2SAT 96
[2016-10-27] MEDS ORDERED: ROBA750T PO ×2 (19:58→21:35)
[2016-10-27] MEDS ORDERED: CALCIUM CARBONATE 500 MG CHEWABLE TAB CHEW ONE (20:00)
[2016-10-27] MEDS ORDERED: oxyCODONE/ACETAMINOPHEN 5 MG/325 MG TAB PO ONE (20:00)
[2016-10-27] MEDS ORDERED: cloNIDine HCL 0.1 MG TAB PO ONE (20:00)
[2016-10-27 20:07] VITALS: BP 199/101; PULSE 73; RESP 18; O2SAT 96
[2016-10-27 21:00] VITALS: BP 171/89; PULSE 58; RESP 16; RESP 17; O2SAT 95
[2016-10-27 21:25] VITALS: BP 160/90
== END 2016-10-27 21:40 | disposition home or self-care (01) ==
LOC: PHED 18:13
DX: M62.838 Other muscle spasm (principal); E83.51 Hypocalcemia; R05 Cough; I25.10 Atherosclerotic heart disease of native coronary artery without angina pectoris; I10 Essential (primary) hypertension; Z79.51 Long term (current) use of inhaled steroids; Z79.899 Other long term (current) drug therapy; Z79.82 Long term (current) use of aspirin
CPT/HCPCS: 80048; 82550; 96372; 99283; J1885; J2360

== ENCOUNTER 2018-07-11 08:38 | Observation (INO) ==
[2018-07-11 09:23] LABS: Baso # (Auto) 0.2 th/mm3 (0.0-0.2); Baso % (Auto) 1.1 % (0.0-2.0); Eos # (Auto) 0.4 th/mm3 (0.0-0.4); Eos % (Auto) 2.7 % (0.0-4.0); Hematocrit 44.7 % (35.0-46.0); Hemoglobin 15.3 gm/dL (11.6-15.3); Lymph # (Auto) 3.4 th/mm3 (1.0-4.8); Lymph % (Auto) 23.7 % (9.0-44.0); Mean Corpuscular HGB Conc 34.3 % (32.0-36.0); Mean Corpuscular Hemoglobin 33.2 pg (27.0-34.0); Mean Platelet Volume 9.2 fL (7.0-11.0); Mono # (Auto) 1.3 th/mm3 (0.0-0.9); Mono % (Auto) 8.9 % (0.0-8.0); Neut # (Auto) 9.1 th/mm3 (1.8-7.7); Neut % (Auto) 63.6 % (16.0-70.0); Platelet Count 262 th/mm3 (150-450); Red Blood Count 4.61 mil/mm3 (4.00-5.30); Red Cell Distribution Width 14.4 % (11.6-17.2); White Blood Count 14.4 th/mm3 (4.0-11.0)
[2018-07-11 09:32] LABS: Albumin 3.7 g/dL (3.4-5.0); Anion Gap 8 meq/L (5-15); Aspartate Aminotransferase 54 U/L (15-37); Blood Urea Nitrogen 16 mg/dL (7-18); Calcium 8.5 mg/dL (8.5-10.1); Carbon Dioxide 22.3 meq/L (21.0-32.0); Chloride 107 meq/L (98-107); Glomerular Filtration Rate 59 mL/min (>89); Glucose,Random 90 mg/dL (74-106); Lipase 213 U/L (73-393); Potassium 4.3 meq/L (3.5-5.1); Sodium 137 meq/L (136-145)
[2018-07-11 09:36] LABS: Alanine Aminotransferase 57 U/L (10-53); Alkaline Phosphatase 102 U/L (45-117); Creatine Kinase 120 U/L (26-192)
--- NOTE | 2018-07-11 09:48 | XR ---
EXAM DATE: 07/11/2018 9:26 AM EST AGE/SEX: 57 years / Female INDICATIONS: Chest pain. CLINICAL DATA: This is the patient's initial encounter. Patient reports that signs and symptoms have been present for 1 day and indicates a pain score of 5/10. MEDICAL/SURGICAL HISTORY: Hypertension. Chronic obstructive pulmonary disease. None. COMPARISON: [facility] [place], CHEST SINGLE AP, 10/23/2016. . FINDINGS: A single AP view of the chest demonstrates the lungs to be symmetrically aerated without evidence of mass, infiltrate or effusion. The cardiomediastinal contours are unremarkable. Degenerative changes are noted throughout the thoracic spine. CONCLUSION: 1. No acute cardiopulmonary disease. 2. Degenerative changes are noted throughout the thoracic spine. Electronically signed by: Micah Cosby MD Board Certified Radiologist 07/11/2018 9:46 AM EST
[2018-07-11 09:59] LABS: Creatine Kinase MB 1.1 ng/mL (0.5-3.6)
[2018-07-11] MEDS ORDERED: ALPRAZolam 0.25 MG Tablet PO PRN (12:25)
[2018-07-11] MEDS ORDERED: Acetaminophen 500 MG Tablet PO PRN (12:27)
--- NOTE | 2018-07-11 12:49 | P.HPCA ---
History of Present Illness Primary Care Physician: Bart Hilton Chief Complaint: Chest pain History of Present Illness: This is a 57-year-old female history of hypertension, hyperlipidemia, past tobacco abuse, and recently told she had carotid artery stenosis that presents to ED with complaint of developing a left-sided chest heaviness while at work. 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 Was rated as a 8-10 out of 10. She states she is short of breath and diaphoretic with it. Lasted about 1 hour. She was taken to the clinic and her blood pressure was found to be elevated at 190/100. Decided to come to ED for further evaluation. Cannot recall ever having a stress test or heart catheterization. Was told a few months ago but finished that she had blockages in her carotid arteries although she does not know why they were looking for blockages of her carotid arteries. She quit smoking 6 weeks ago prior to that she smoked 1 pack of cigarettes a day for 45 years. She states her brother age 60 of an DC. History of hypertension hyperlipidemia. Recent told that she had carotid artery stenosis he denies diabetes and CAD. Quit smoking 6 weeks ago but prior to that smoked about 1 pack of cigarettes a day for 45 years. Denies alcohol or illicit drug use. She states that her brother at age 60 of an DC. States that her mother also had heart disease but does not know the specifics about it. - Diagnosis (1) Chest pain (2) Hypertension (3) Hyperlipidemia Review of Systems General: Patient denies fevers, chills, and recent travel. HEENT: Patient denies headache, sore throat, difficulty swallowing. Cardiovascular: Has the chest discomfort as mentioned above. Denies sensation of heart beating rapidly or irregularly. No syncope. She was diaphoretic. Respiratory: She was short of breath. Denies inspirational chest discomfort. Denies coughing wheezing or hemoptysis. GI: Patient denies nausea, vomiting, diarrhea, abdominal pain, bloody stools. Musculoskeletal: Patient denies joint pain or edema. Denies calf pain or edema. Neurovascular: Patient denies numbness, tingling, weakness in extremities. Denies headache. Endocrine: Denies polyuria and polydipsia. Hematologic: Denies easy bruising. Skin: Denies rash or itching. PMFSH - History History Provided By: Patient - Medical History Medical History: Medical History (Last Updated 07/11/18 @ 08:54 by Bailey Villegas) High cholesterol History of hysterectomy Hypertension - Surgical History Surgical History: Surgical History (Last Updated 07/11/18 @ 08:54 by Bailey Villegas) History of cholecystectomy History of tonsillectomy - Tobacco History Tobacco Use In Past 30 Days: No Smoking Status: Former smoker Tobacco Type: Cigarettes - Alcohol History How Often Do You Have a Drink Containing Alcohol: Never - Substance Use History Substance History: No History of Abuse - Travel History Recent Travel in the [place] Within the Last 8 Weeks: No Recent Travel Out of the Country Within the Last 8 Weeks: No - Immunization History Tetanus Immunization: >5 Years Medications and Allergies Active Medications: Active Medications Acetaminophen (Tylenol) 500 mg PO Q6H PRN PRN Reason: pain scale 1-5 Albuterol (Duoneb Neb (Prn)) 1 ampul NEB Q4HR NEB PRN PRN Reason: SHORTNESS OF BREATH/WHEEZING Alprazolam (Xanax) 0.25 mg PO Q8H PRN PRN Reason: ANXIETY Aspirin (Aspirin) 325 mg PO DAILY SEPIDEH Clonidine HCl (Catapres) 0.1 mg PO Q6H PRN PRN Reason: SBP >165 OR DBP > 110 Ondansetron HCl (Zofran Inj) 4 mg IV.PUSH Q6H PRN PRN Reason: NAUSEA Sodium Chloride (Ns Flush) 2 ml IV.FLUSH UNSCH PRN PRN Reason: FLUSH AFTER USING IV ACCESS Sodium Chloride (Ns Flush) 2 ml IV.FLUSH BID SEPIDEH Sodium Chloride (Ns Flush) 2 ml IV.FLUSH PRN PRN PRN Reason: FLUSH AFTER USING IV ACCESS Allergies Allergy/AdvReac Type Severity Reaction Status Date / Time morphine Allergy Severe Nausea/Vomi Unverified 07/11/18 08:53 ting Home Medications Medication Instructions Recorded Confirmed Type aspirin [Aspirin Childrens] 81 mg PO DAILY 07/11/18 07/11/18 History lisinopril mg PO DAILY 07/11/18 History simvastatin mg PO QPM 07/11/18 History Exam Vital signs: Vital Signs 07/11/18 08:44 07/11/18 10:15 Temperature 98.7 F Pulse Rate 83 72 Respiratory Rate 18 17 Blood Pressure 169/98 H 153/72 H Pulse Oximetry 99 96 Intake & Output 07/10/18 07/11/18 07/11/18 18:59 06:59 18:59 Weight 99.79 kg Narrative: GENERAL: This is a well-nourished, well-developed patient, in no apparent distress. Patient speaks in clear complete sentences. Patient is pleasant. HEENT: Head is atraumatic and normocephalic. Neck is supple without lymphadenopathy and trachea is midline. No JVD or carotid bruits. CARDIOVASCULAR: Regular rate and rhythm without murmurs, gallops, or rubs. RESPIRATORY: Clear to auscultation. Breath sounds equal bilaterally. No wheezes , rales, or rhonchi. Chest wall is tender. No use of accessory muscles. GASTROINTESTINAL: Abdomen is nontender, nondistended. Abdomen soft. No obvious pulsatile mass or bruit. No CVA tenderness. Strong femoral pulses bilaterally. Normal bowel sounds in all quadrants. MUSCULOSKELETAL: Patient is moving upper and lower extremities freely. No calf tenderness or edema, no Homans sign. Strong pulses in upper and lower extremities. NEUROLOGICAL: Patient is alert and oriented. Cranial nerves 2-12 are grossly intact. No focal deficits and speech is clear. SKIN: No rash and turgor is normal. Results 07/11/18 09:00 07/11/18 09:00 Cardiac Enzymes 07/11/18 Range/Units 09:00 AST 54 H (15-37) U/L CK-MB (CK-2) 1.1 (0.5-3.6) ng/mL Troponin I Less than 0.02 L (0.02-0.05) ng/mL CBC 07/11/18 Range/Units 09:00 WBC 14.4 H (4.0-11.0) th/mm3 RBC 4.61 (4.00-5.30) mil/mm3 Hgb 15.3 (11.6-15.3) gm/dL Hct 44.7 (35.0-46.0) % Plt Count 262 (150-450) th/mm3 Neut # (Auto) 9.1 H (1.8-7.7) th/mm3 Lymph # (Auto) 3.4 (1.0-4.8) th/mm3 [place] # (Auto) 1.3 H (0.0-0.9) th/mm3 Eos # (Auto) 0.4 (0.0-0.4) th/mm3 Baso # (Auto) 0.2 (0.0-0.2) th/mm3 Comprehensive Metabolic Panel 07/11/18 Range/Units 09:00 Sodium 137 (136-145) meq/L Potassium 4.3 (3.5-5.1) meq/L Chloride 107 (98-107) meq/L Carbon Dioxide 22.3 (21.0-32.0) meq/L BUN 16 (7-18) mg/dL Creatinine 0.96 (0.50-1.00) mg/dL Calcium 8.5 (8.5-10.1) mg/dL AST 54 H (15-37) U/L ALT 57 H (10-53) U/L Alkaline Phosphatase 102 (45-117) U/L Total Protein 8.0 (6.4-8.2) g/dL Albumin 3.7 (3.4-5.0) g/dL Intake and Output 07/10/18 07/11/18 07/11/18 22:59 06:59 14:59 Other: Weight 99.79 kg Patient Weight 07/12/18 06:59 Weight 99.79 kg - Imaging and Cardiology Imaging: Impressions Chest X-Ray 07/11/18 08:51 CONCLUSION: 1. No acute cardiopulmonary disease. 2. Degenerative changes are noted throughout the thoracic spine. EKG interpretations - EKG EKG shows: sinus rhythm (Initial EKG is sinus rhythm without significant ST segment depressions or elevations.) Caprini VTE Risk Assessment Caprini VTE Risk Assessment: No/Low Risk (score <= 1) Caprini Risk Assessment Model: Point Value = 1 Point Value = 2 Point Value = 3 Point Value = 5 Age 41-60 Minor surgery BMI > 25 kg/m2 Swollen legs Varicose veins or History of unexplained or recurrent spontaneous Oral contraceptives or hormone replacement Sepsis (< 1 month) Serious lung disease, including pneumonia (< 1 month) Abnormal pulmonary function Acute myocardial infarction Congestive heart failure (< 1 month) History of inflammatory bowel disease Medical patient at bed rest Age 61-74 Arthroscopic surgery Major open surgery (> 45 min) Laparoscopic surgery (> 45 min) Malignancy Confined to bed (> 72 hours) Immobilizing plaster cast Central venous access Age >= 75 History of VTE Family history of VTE Factor V Leiden Prothrombin [id number] Lupus anticoagulant Anticardiolipin antibodies Elevated serum homocysteine Heparin-induced thrombocytopenia Other congenital or acquired thrombophilia Stroke (< 1 month) Elective arthroplasty Hip, pelvis, or leg fracture Acute spinal cord injury (< 1 month) Prophylaxis Regimen: Total Risk Factor Score Risk Level Prophylaxis Regimen 0-1 Low Early ambulation 2 Moderate Order ONE of the following: *Sequential Compression Device (SCD) *Heparin 5000 units SQ BID 3-4 Higher Order ONE of the following medications: *Heparin 5000 units SQ TID *Enoxaparin/Lovenox 40 mg SQ daily (WT < 150 kg, CrCl > 30 mL/min) *Enoxaparin/Lovenox 30 mg SQ daily (WT < 150 kg, CrCl > 10-29 mL/min) *Enoxaparin/Lovenox 30 mg SQ BID (WT < 150 kg, CrCl > 30 mL/min) AND/OR *Sequential Compression Device (SCD) 5 or more Highest Order ONE of the following medications: *Heparin 5000 units SQ TID (Preferred with Epidurals) *Enoxaparin/Lovenox 40 mg SQ daily (WT < 150 kg, CrCl > 30 mL/min) *Enoxaparin/Lovenox 30 mg SQ daily (WT < 150 kg, CrCl > 10-29 mL/min) *Enoxaparin/Lovenox 30 mg SQ BID (WT < 150 kg, CrCl > 30 mL/min) AND *Sequential Compression Device (SCD) Assessment and Plan - Assessment (1) Chest pain Code(s): R07.9 - Chest pain, unspecified Status: Acute (2) Hypertension Code(s): I10 - Essential (primary) hypertension Status: Acute (3) Hyperlipidemia Code(s): E78.5 - Hyperlipidemia, unspecified Status: Acute - Plan * Chest pain: Patient will continue to have serial cardiac enzymes and EKGs for ruling out purposes. She will be seen by Dr. Gonzalez of cardiology in the chest pain center. States she cannot walk on a treadmill, subsequently she will have a Lexiscan in the morning if she rules out. Patient will be discharged home if stress test is nonischemic with instructions to follow-up with PCP and return ED for interval issues. * Hypertension: Continue medication. * Hyperlipidemia: Continue medication. Patient is stable at this time. She is agreeable to this plan.
[2018-07-11 13:28] LABS: Creatine Kinase 103 U/L (26-192)
--- NOTE | 2018-07-11 13:30 | ECG ---
Date Performed: 07/11/2018 Time Performed: 08:44:44 PTAGE: 57 years EKG: Sinus rhythm WITH FIRST DEGREE AV BLOCK ABNORMAL ECG PREVIOUS TRACING : 10/23/2016 08.31 DOCTOR: Mekhi Mendieta Interpretating Date/Time 07/14/2018 07:14:12
--- NOTE | 2018-07-11 14:27 | ED ---
HPI General Chief Complaint: Chest Pain Stated Complaint: Chest Pain Complaint Time Seen by Provider: 07/11/18 08:50 History of Present Illness HPI narrative: This is a 57-year-old female with history of hypertension, hyperlipidemia, who presents via work with complaints of substernal chest pain, pressure. 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 She reports pain as pressure-like and rates it as a 9 out of 10 on the pain scale when she initially got it. When paramedics arrived, they administered 2 sublingual nitroglycerin. They also gave her 3 baby aspirins to supplement her 1 baby aspirin she takes daily. The patient reported associated nausea. There was diaphoresis. She is pain-free at the time of my examination. Patient does have history of carotid artery disease. Related Data Home Medications Medication Instructions Recorded Confirmed aspirin [Aspirin Childrens] 81 mg PO DAILY 07/11/18 07/11/18 lisinopril mg PO DAILY 07/11/18 simvastatin mg PO QPM 07/11/18 Allergies Allergy/AdvReac Type Severity Reaction Status Date / Time morphine Allergy Severe Nausea/Vomi Unverified 07/11/18 08:53 ting Review of Systems ROS: all other systems reviewed are negative Constitutional Reports system reviewed and no additional complaints, except as docu Eyes Reports system reviewed and no additional complaints, except as docu ENT Reports system reviewed and no additional complaints, except as docu Cardiovascular Reports chest pain, Reports diaphoresis and Reports dyspnea Respiratory Denies chest congestion, Denies cough and Reports dyspnea Gastrointestinal Denies abdominal pain, Reports nausea and Denies vomiting [facility] Medical History Medical History High cholesterol (Acute) History of hysterectomy (Acute) Hypertension (Acute) Surgical History Surgical History History of cholecystectomy (Acute) History of tonsillectomy (Acute) Social History Social History Substance History: No History of Abuse Second Hand Smoke Exposure: No Smoking Status: Former smoker Tobacco Type: Cigarettes How Often Do You Have a Drink Containing Alcohol: Never Recent Travel in [facility] within the Last 8 Weeks: No Recent Out of Country Travel within the Last 8 Weeks: No Immunization History Tetanus Immunization: >5 Years Course Initial Documented Vital Signs Temperature 98.7 F 07/11/18 08:44 Pulse Rate 83 07/11/18 08:44 Respiratory Rate 18 07/11/18 08:44 Blood Pressure 169/98 H 07/11/18 08:44 Pulse Oximetry 99 07/11/18 08:44 Last Documented Vital Signs Temperature 98.7 F 07/11/18 08:44 Pulse Rate 72 07/11/18 10:15 Respiratory Rate 17 07/11/18 10:15 Blood Pressure 153/72 H 07/11/18 10:15 Pulse Oximetry 98 07/11/18 12:48 Quality Measure Queries VTE Deep Vein Thrombosis/Pulmonary Embolism Present on Admission: No Medical Decision Making MDM Narrative Medical decision making narrative: 57-year-old female with a history of hypertension, dyslipidemia, who presents here with complaints of chest pain. Patient was at work when she had the episode. She was given 2 sublingual nitroglycerin and aspirin. Her pain went from a 9 to a 0. The patient is pain- free at the time of my examination. She has had nitroglycerin paste placed on her anterior chest wall. She will be admitted to the chest pain center as her cardiac enzymes are within normal limits. The patient does have vascular disease and states that she has carotid artery stenosis. Case was discussed with the attending and PA from the chest pain center. Medical Screen Exam Complete: Yes Emergency Medical Condition: Yes Differential Diagnosis Differential Diagnosis: ACS versus muscular skeletal pain versus GERD Lab Data Result diagrams: 07/11/18 09:00 07/11/18 09:00 Lab Results 07/11/18 07/11/18 07/11/18 Range/Units 08:47 09:00 09:00 WBC 14.4 H (4.0-11.0) th/mm3 RBC 4.61 (4.00-5.30) mil/mm3 Hgb 15.3 (11.6-15.3) gm/dL Hct 44.7 (35.0-46.0) % MCV 97.0 (80.0-100.0) fL MCH 33.2 (27.0-34.0) pg MCHC 34.3 (32.0-36.0) % RDW 14.4 (11.6-17.2) % Plt Count 262 (150-450) th/mm3 MPV 9.2 (7.0-11.0) fL Prelim Diff (Auto) Slide review pending Neut % (Auto) 63.6 (16.0-70.0) % Lymph % (Auto) 23.7 (9.0-44.0) % [place] % (Auto) 8.9 H (0.0-8.0) % Eos % (Auto) 2.7 (0.0-4.0) % Baso % (Auto) 1.1 (0.0-2.0) % Neut # (Auto) 9.1 H (1.8-7.7) th/mm3 Lymph # (Auto) 3.4 (1.0-4.8) th/mm3 [place] # (Auto) 1.3 H (0.0-0.9) th/mm3 Eos # (Auto) 0.4 (0.0-0.4) th/mm3 Baso # (Auto) 0.2 (0.0-0.2) th/mm3 WBC Differential . Diff Scan Auto diff confirmed Differential Comment . Sodium 137 (136-145) meq/L Potassium 4.3 (3.5-5.1) meq/L Chloride 107 (98-107) meq/L Carbon Dioxide 22.3 (21.0-32.0) meq/L Anion Gap 8 (5-15) meq/L BUN 16 (7-18) mg/dL Creatinine 0.96 (0.50-1.00) mg/dL Estimated GFR 59 L (>89) mL/min POC Glucose 84 (68-110) mg/dl Random Glucose 90 (74-106) mg/dL Calcium 8.5 (8.5-10.1) mg/dL Total Bilirubin 0.4 (0.2-1.0) mg/dL AST 54 H (15-37) U/L ALT 57 H (10-53) U/L Alkaline Phosphatase 102 (45-117) U/L Total Creatine Kinase 120 (26-192) U/L CK-MB (CK-2) 1.1 (0.5-3.6) ng/mL Troponin I Less than 0.02 L (0.02-0.05) ng/mL Total Protein 8.0 (6.4-8.2) g/dL Albumin 3.7 (3.4-5.0) g/dL Lipase 213 (73-393) U/L 07/11/18 Range/Units 12:10 WBC (4.0-11.0) th/mm3 RBC (4.00-5.30) mil/mm3 Hgb (11.6-15.3) gm/dL Hct (35.0-46.0) % MCV (80.0-100.0) fL MCH (27.0-34.0) pg MCHC (32.0-36.0) % RDW (11.6-17.2) % Plt Count (150-450) th/mm3 MPV (7.0-11.0) fL Prelim Diff (Auto) Neut % (Auto) (16.0-70.0) % Lymph % (Auto) (9.0-44.0) % [place] % (Auto) (0.0-8.0) % Eos % (Auto) (0.0-4.0) % Baso % (Auto) (0.0-2.0) % Neut # (Auto) (1.8-7.7) th/mm3 Lymph # (Auto) (1.0-4.8) th/mm3 [place] # (Auto) (0.0-0.9) th/mm3 Eos # (Auto) (0.0-0.4) th/mm3 Baso # (Auto) (0.0-0.2) th/mm3 WBC Differential Diff Scan Differential Comment Sodium (136-145) meq/L Potassium (3.5-5.1) meq/L Chloride (98-107) meq/L Carbon Dioxide (21.0-32.0) meq/L Anion Gap (5-15) meq/L BUN (7-18) mg/dL Creatinine (0.50-1.00) mg/dL Estimated GFR (>89) mL/min POC Glucose (68-110) mg/dl Random Glucose (74-106) mg/dL Calcium (8.5-10.1) mg/dL Total Bilirubin (0.2-1.0) mg/dL AST (15-37) U/L ALT (10-53) U/L Alkaline Phosphatase (45-117) U/L Total Creatine Kinase 103 (26-192) U/L CK-MB (CK-2) (0.5-3.6) ng/mL Troponin I Less than 0.02 L (0.02-0.05) ng/mL Total Protein (6.4-8.2) g/dL Albumin (3.4-5.0) g/dL Lipase (73-393) U/L Imaging Data Radiologist's impression: Chest X-Ray 07/11/18 08:51 CONCLUSION: 1. No acute cardiopulmonary disease. 2. Degenerative changes are noted throughout the thoracic spine. Discharge Plan Discharge Disposition Patient Disposition: ED Admit(ED Internal Use Only) Discharge Order Discharge Orders: ED Use Only Admit Order (Routine); Ordered 07/11/18 Ordered By: Mason Dumont Discharge Details Diagnosis: Chest pain, Hypertension, Hyperlipidemia Physicians Team ED Provider: Mason Dumont Primary Care Provider: Bart Hilton Attending Provider: Israel Gonzalez ED Status: Admitted Observation Patient
[2018-07-11 16:50] LABS: Creatine Kinase 105 U/L (26-192)
[2018-07-12] MEDS ORDERED: Aspirin 325 MG Tablet PO SCH (09:00)
[2018-07-12] MEDS ORDERED: Regadenoson Inj 0.4 MG/5 ML Syringe IV.PUSH ONE (09:06)
--- NOTE | 2018-07-12 10:22 | TR ---
Date Performed: 07/12/2018 Time Performed: 09:36:40 DOCTOR: Israel Gonzalez DRUG LIST: CLINICAL HISTORY: REASON FOR TEST: REASON FOR ENDING: OBSERVATION: CONCLUSION: COMMENTS: Lexiscan stress test was performed under standard four minute protocol. Radionuclide was injected one minute prior to ending the test. No electrocardiographic abormalities were present t o suggest ischemia. Nuclear imaging and interpretation are pending.
--- NOTE | 2018-07-12 11:00 | NM ---
EXAM DATE: 07/12/2018 10:35 AM EST AGE/SEX: 57 years / Female INDICATIONS:Angina. . Left sided chest pain. CLINICAL DATA: This is the patient's initial encounter. Patient reports that signs and symptoms have been present for 1 day and indicates a pain score of 8/10. MEDICAL/SURGICAL HISTORY: Hypercholesterolemia. Hypertension. Hysterectomy. Cholecystectomy. COMPARISON: No prior exams available for comparison. DOSE: 8.1 mCi Tc 99m Myoview at rest 26.5 mCi [id number] at stress 0.4 mg Lexiscan STRESS SYMPTOMS: Nausea. EJECTION FRACTION: 56 % TECHNIQUE: The patient underwent pharmacologic stress with infusion of prescribed dose. Continuous ECG tracing was monitored during stress. Gated SPECT imaging was performed after stress and conventi onal SPECT imaging was performed at rest. The examination was performed on a SPECT/CT scanner, both attenuation and non-corrected datasets were reviewed. FINDINGS: Distribution: The maximum perfused segment at stress is in the inferior septal wall. Perfusion Study: The pattern of perfusion at stress is within normal limits. Gated Study: There are intact wall motion and wall thickening without hypokinetic or dyskinetic segm ents. The ejection fraction is calculated at 56%. RISK CATEGORY: Low (<1% Annual Motality Rate) CONCLUSION: No areas of ischemia are seen. Electronically signed by: Bart Barahona MD Board Certified Radiologist 07/12/2018 10:59 AM EST
--- NOTE | 2018-07-12 11:29 | ECG ---
Date Performed: 07/11/2018 Time Performed: 15:56:12 PTAGE: 57 years EKG: Sinus rhythm WITH FIRST DEGREE AV BLOCK ABNORMAL ECG PREVIOUS TRACING : 07/11/2018 12.31 Since previous tracing, no significant change noted DOCTOR: Israel Gonzalez Interpretating Date/Time 07/12/2018 11:27:28
--- NOTE | 2018-07-12 11:31 | ECG ---
Date Performed: 07/11/2018 Time Performed: 12:31:51 PTAGE: 57 years EKG: Sinus rhythm WITH FIRST DEGREE AV BLOCK ABNORMAL ECG PREVIOUS TRACING : 07/11/2018 08.44 Since previous tracing, no significant change noted DOCTOR: Israel Gonzalez Interpretating Date/Time 07/12/2018 11:30:39
== END 2018-07-12 12:35 | disposition home or self-care (01) ==
LOC: NEPC 08:38 → NEDA 08:38 → NEPFCDU 12:53